=== PATIENT | male | born 1945 | race Hispanic/Latino ===

== ENCOUNTER 2017-12-29 11:24 | Emergency (ER) | payer MEDICARE ==
[2017-12-29 11:24] VITALS: BMI 36.0
[2017-12-29 12:02] VITALS: RESP 18; TEMP 98.2
[2017-12-29 13:25] LABS: BASO # 0.04 K/mm3 (0.0-2.0); BASO % 0.5 % (0.0-3.0); EOS # 0.1 (0.0-0.7); EOS % 1.6 % (1.5-5.0); GRAN # 5.11 (1.4-6.5); GRAN % 62.2 % (50.0-68.0); HEMOGLOBIN 14.7 g/dL (14.0-18.0); LYMPH % 23.7 % (22.0-35.0); MEAN CELL VOLUME 90.8 fl (80.0-105.0); MEAN CORPUSCULAR HEMOGLOBIN 31.4 pg (25.0-35.0); MEAN CORPUSCULAR HGB CONC 34.6 g/dl (31.0-37.0); MEAN PLATELET VOLUME 11.4 fl (7.0-11.0); RBC 4.68 10^6/uL (3.5-6.1); RED CELL DISTRIBUTION WIDTH 13.1 % (11.5-14.5); WHITE BLOOD COUNT 8.2 10^3/ul (4.5-11.0)
[2017-12-29 13:28] LABS: ALB/GLOB RATIO 1.5 (1.1-1.8); ALBUMIN 4.4 g/dL (3.0-4.8); ALT/SGPT 21 U/L (7-56); AST/SGOT 19 U/L (17-59); BLOOD UREA NITROGEN 14 mg/dL (7-21); CALCIUM 9.7 mg/dL (8.4-10.5); GFR NON-AFRICAN AMERICAN > 60; INR 1.03; PARTIAL THROMBOPLASTIN TIME 31.4 Seconds (25.1-36.5); PROTHROMBIN TIME 11.7 SECONDS (9.4-12.5)
[2017-12-29 13:39] LABS: B-TYPE NATRIURETIC PEPTIDE 511 pg/mL (0-450); TROPONIN I 0.02 ng/mL
--- NOTE | 2017-12-29 14:20 | ED PDOC ---
Arrival/HPI - General Historian: Patient - History of Present Illness Narrative History of Present Illness (Text): 12/29/17 14:12 72yo male with pmhx of hypertension, gout, CAD s/p cardiac stent, 1998 present via EMS for evaluation of elevated BP. Patient stats his BP is always elevated. States he went to [facility] for his handicap decal, and while there his BP was checked and it was 200/80 so he was referred to ED. States he has been on Benzapril and Carvidillol for years now. Report that he stopped taking Carvidilol 3weeks now, because he was having a reaction to it and his PMD at [facility] told him to stop it. States his Benzapril dose was not increased. 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 He however denies any chest pain, SOB, abdominal pain, nausea,vomiting, focal weakness, neurological weakness, any other complaint. <Hallie Oconnor A - Last Filed: 12/29/17 19:51> <Chris Sanchez - Last Filed: 12/30/17 07:28> - General Chief Complaint: High Blood Pressure Time Seen by Provider: 12/29/17 11:25 Past Medical History - Provider Review Nursing Documentation Reviewed: Yes - Infectious Disease Hx of Infectious Diseases: None - Tetanus Immunization Tetanus Immunization: Unknown - Cardiac Hx Cardiac Disorders: Yes Hx Circulatory Problems: Yes Hx Hypertension: Yes - Psychiatric Hx Anxiety: No Hx Depression: No Hx Panic Disorder: No Hx Substance Use: No - Surgical History Hx Cardiac Catheterization: Yes Hx Coronary Artery Bypass Graft: Yes Hx Coronary Stent: Yes - Anesthesia Hx Anesthesia Reactions: No - Suicidal Assessment Feels Threatened In Home Enviroment: No <Hallie Oconnor A - Last Filed: 12/29/17 19:51> Family/Social History - Physician Review Nursing Documentation Reviewed: Yes Family/Social History: Unknown Family HX Smoking Status: Unknown If Ever Smoked Hx Alcohol Use: No Hx Substance Use: No <ElvinHappiness A - Last Filed: 12/29/17 19:51> Allergies/Home Meds <ElvinHappiness A - Last Filed: 12/29/17 19:51> <Chris Sanchez - Last Filed: 12/30/17 07:28> Allergies/Adverse Reactions: Allergies Iodine and Iodide Containing Produc Allergy (Verified 12/29/17 12:02) RASH shellfish derived Allergy (Verified 12/29/17 12:02) RASH Home Medications: Home Meds Medication Instructions Recorded Confirmed Benazepril Hydrochloride 02/06/14 02/06/14 [Benazepril] Carvedilol 02/06/14 02/06/14 Clopidogrel [Plavix] 02/06/14 02/06/14 Isosorbide Mononitrate [Imdur] 02/06/14 02/06/14 Rosuvastatin Calcium [Crestor] 02/06/14 02/06/14 Review of Systems - Physician Review All systems were reviewed & negative as marked: Yes - Review of Systems Constitutional: Normal, Other (Elevated BP) Eyes: Normal ENT: Normal Respiratory: Normal Cardiovascular: Normal Gastrointestinal: Normal Genitourinary Male: Normal Musculoskeletal: Normal Skin: Normal Neurological: Normal Endocrine: Normal Hemo/Lymphatic: Normal Psychiatric: Normal <Diru,Happiness A - Last Filed: 12/29/17 19:51> Physical Exam Vital Signs Reviewed: Yes Vital Signs Temp Pulse Resp BP Pulse Ox 12/29/17 13:53 180 H 12/29/17 11:30 98.2 F 66 18 194/97 H 99 Temperature: Afebrile Blood Pressure: Normal Pulse: Regular Respiratory Rate: Normal Appearance: Positive for: Well-Appearing, Non-Toxic, Comfortable Pain Distress: None Mental Status: Positive for: Alert and Oriented X 3 - Systems Exam Head: Present: Atraumatic, Normocephalic Pupils: Present: PERRL Extroacular Muscles: Present: EOMI Conjunctiva: Present: Normal Mouth: Present: Moist Mucous Membranes Neck: Present: Normal Range of Motion Respiratory/Chest: Present: Clear to Auscultation, Good Air Exchange. No: Respiratory Distress, Accessory Muscle Use Cardiovascular: Present: Regular Rate and Rhythm, Normal S1, S2. No: Murmurs Abdomen: No: Tenderness, Distention, Peritoneal Signs Back: Present: Normal Inspection Upper Extremity: Present: Normal Inspection. No: Cyanosis, Edema Lower Extremity: Present: Normal Inspection. No: Edema Neurological: Present: GCS=15, CN II-XII Intact, Speech Normal Skin: Present: Warm, Dry, Normal Color. No: Rashes Psychiatric: Present: Alert, Oriented x 3, Normal Insight, Normal Concentration <Diru,Happiness A - Last Filed: 12/29/17 19:51> Vital Signs Temp Pulse Resp BP Pulse Ox 12/29/17 16:15 70 18 156/96 H 98 12/29/17 14:25 167/91 H 12/29/17 13:53 180/105 H 12/29/17 12:30 191/100 H 12/29/17 11:30 98.2 F 66 18 194/97 H 99 <LauraChris - Last Filed: 12/30/17 07:28> Medical Decision Making ED Course and Treatment: 12/29/17 19:37 PT in ED for stated history. He was not in any distress. He denies any focal somatic complaint. He is neurologically intact. Labs was ordered and reviewed, unremarkable. EKG NSR @ 63bpm. NSTEMI Pt's BP improved slightly with medication in ED. PT report history of chronic elevated BP. He has a PMD and a Cargo Agent. He was advised to f/u with his PMD for review of his medications. TRT ED for any new or worsening symptoms - Lab Interpretations Lab Results: 12/29/17 13:14 12/29/17 13:14 Lab Results 12/29/17 13:14: Sodium 141, Potassium 4.8, Chloride 106, Carbon Dioxide 28, Anion Gap 12, BUN 14, Creatinine 0.8, Est GFR ( Amer) > 60, Est GFR (Non- Af Amer) > 60, Random Glucose 105, Calcium 9.7, Magnesium 2.1, Total Bilirubin 0.4, AST 19, ALT 21, Alkaline Phosphatase 56, Lactate Dehydrogenase 465, Total Creatine Kinase 81, Troponin I 0.02, NT-Pro-B Natriuret Pep 511 H, Total Protein 7.4, Albumin 4.4, Globulin 3.0, Albumin/Globulin Ratio 1.5 12/29/17 13:14: PT 11.7, INR 1.03, APTT 31.4 12/29/17 13:14: WBC 8.2, RBC 4.68, Hgb 14.7, Hct 42.5, MCV 90.8, MCH 31.4, MCHC 34.6, RDW 13.1, Plt Count 158, MPV 11.4 H, Gran % 62.2, Lymph % (Auto) 23.7, Mccreary % (Auto) 12.0 H, Eos % (Auto) 1.6, Baso % (Auto) 0.5, Gran # 5.11, Lymph # (Auto) 2.0, Mccreary # (Auto) 1.0 H, Eos # (Auto) 0.1, Baso # (Auto) 0.04 - Medication Orders Current Medication Orders: Discontinued Medications Hydralazine HCl (Apresoline) 10 mg IVP ONCE ONE Stop: 12/29/17 13:41 Last Admin: 12/29/17 13:53 Dose: 10 mg IVP Administration Document 12/29/17 13:53 [facility] (Rec: 12/29/17 13:54 [id number] Charges for Administration # of IVP Administrations 1 JUN Pulse and Blood Pressure Document 12/29/17 13:53 [facility] (Rec: 12/29/17 13:54 [id number]) Pulse Pulse Rate (60-90 beats/min) 180 <Diru,Happiness A - Last Filed: 12/29/17 19:51> - Lab Interpretations Lab Results: 12/29/17 13:14 12/29/17 13:14 Lab Results 12/29/17 14:50: Urine Color Light yellow, Urine Appearance Clear, Urine pH 7.0, Ur Specific Milam <= 1.005, Urine Protein Negative, Urine Glucose (UA) Negative, Urine Ketones Negative, Urine Blood Negative, Urine Nitrate Negative, Urine Bilirubin Negative, Urine Urobilinogen 0.2, Ur Leukocyte Esterase Negative 12/29/17 13:14: Sodium 141, Potassium 4.8, Chloride 106, Carbon Dioxide 28, Anion Gap 12, BUN 14, Creatinine 0.8, Est GFR ( Amer) > 60, Est GFR (Non- Af Amer) > 60, Random Glucose 105, Calcium 9.7, Magnesium 2.1, Total Bilirubin 0.4, AST 19, ALT 21, Alkaline Phosphatase 56, Lactate Dehydrogenase 465, Total Creatine Kinase 81, Troponin I 0.02, NT-Pro-B Natriuret Pep 511 H, Total Protein 7.4, Albumin 4.4, Globulin 3.0, Albumin/Globulin Ratio 1.5 12/29/17 13:14: PT 11.7, INR 1.03, APTT 31.4 12/29/17 13:14: WBC 8.2, RBC 4.68, Hgb 14.7, Hct 42.5, MCV 90.8, MCH 31.4, MCHC 34.6, RDW 13.1, Plt Count 158, MPV 11.4 H, Gran % 62.2, Lymph % (Auto) 23.7, Mccreary % (Auto) 12.0 H, Eos % (Auto) 1.6, Baso % (Auto) 0.5, Gran # 5.11, Lymph # (Auto) 2.0, Mccreary # (Auto) 1.0 H, Eos # (Auto) 0.1, Baso # (Auto) 0.04 - Medication Orders Current Medication Orders: Discontinued Medications Hydralazine HCl (Apresoline) 10 mg IVP ONCE ONE Stop: 12/29/17 13:41 Last Admin: 12/29/17 13:53 Dose: 10 mg IVP Administration Document 12/29/17 13:53 [facility] (Rec: 12/29/17 13:54 [id number]) Charges for Administration # of IVP Administrations 1 JUN Pulse and Blood Pressure Document 12/29/17 13:53 [facility] (Rec: 12/29/17 13:54 [id number]) Blood Pressure Blood Pressure (100/60-150/90) 180/105 <Chris Sanchez - Last Filed: 12/30/17 07:28> - PA / [employer] / Resident Statement / has reviewed & agrees with the documentation as recorded. <Chris Sanchez - Last Filed: 12/30/17 07:28> Disposition/Present on Arrival - Present on Arrival Any Indicators Present on Arrival: No History of DVT/PE: No History of Uncontrolled Diabetes: No Urinary Catheter: No History of Decub. Ulcer: No History Surgical Site Infection Following: None - Disposition Have Diagnosis and Disposition been Completed?: Yes Disposition Time: 15:15 Patient Plan: Discharge <Hallie Oconnor - Last Filed: 12/29/17 19:51> <Chris Sanchez - Last Filed: 12/30/17 07:28> - Disposition Diagnosis: Hypertension Disposition: HOME/ ROUTINE Condition: STABLE Discharge Instructions (ExitCare): High Blood Pressure (DC) Additional Instructions: Follow up with your Doctor Return to ED for any new or worsening symptoms Referrals: Cadoo,Marichuy K A, MD [Primary Care Provider] - Follow up with primary Forms: [employer] (Macedonian)
[2017-12-29 15:12] LABS: URINE BILIRUBIN NEGATIVE (NEGATIVE); URINE BLOOD NEGATIVE (NEGATIVE); URINE GLUCOSE (UA) NEGATIVE (NEGATIVE); URINE LEUKOCYTE ESTERASE NEGATIVE Leu/uL (NEGATIVE); URINE PROTEIN NEGATIVE mg/dL (<30 mg/dL); URINE UROBILINOGEN 0.2 E.U./dL (<1 E.U./dL)
[2017-12-29 15:14] LABS: URINE APPEARANCE CLEAR (CLEAR); URINE COLOR LIGHT YELLOW (YELLOW)
[2017-12-29 16:33] VITALS: BP 156/96; PULSE 70; O2SAT 98
--- NOTE | 2017-12-30 09:47 | CARD ---
APPROVED REPORT Date of service: 12/29/2017 EKG Measurement Heart [id number]-10 [id number] <Conclusion> Normal sinus rhythm Inferior infarct, age undetermined NSSTW changes
== END 2017-12-30 01:11 | disposition home or self-care (01) ==
LOC: ED 11:24
DX: I10 Essential (primary) hypertension (principal); I25.10 Atherosclerotic heart disease of native coronary artery without angina pectoris; Z95.1 Presence of aortocoronary bypass graft; Z95.5 Presence of coronary angioplasty implant and graft
CPT/HCPCS: 80053; 81003; 82550; 83615; 83735; 83880; 84484; 85025; 85610; 85730; 93005; 96374; 99282; J0360

== ENCOUNTER 2018-01-01 23:09 | Emergency (ER) | payer MEDICARE ==
[2018-01-01 23:19] VITALS: BMI 32.6
[2018-01-02 00:19] VITALS: TEMP 98.2
--- NOTE | 2018-01-02 01:06 | ED PDOC ---
Arrival/HPI - General Chief Complaint: High Blood Pressure Time Seen by Provider: 01/01/18 23:56 Historian: Patient - History of Present Illness Narrative History of Present Illness (Text): 01/02/18 01:00 72 year old male, whose past medical history includes hypertension, gout, CAD s/p cardiac stent, 1998, presents to the emergency department via EMS complaining of elevated blood pressure. Patient states he was seen 4 days in the ER for elevated blood pressure of "200/80" and discharged when it was controlled. Patient followed up with Dr. Wall who prescribed Klonopin for anxiety. Patient checked his blood pressure again today and states it was "203/94". Patient denies any other complaints. Patient denies any fever, chills, chest pain, shortness of breath, nausea, vomiting, diarrhea, urinary symptoms, back pain, neck pain, headache, dizziness, or any other complaints. [facility] Time/Duration: Other (today) Symptom Onset: Sudden Symptom Course: Unchanged Activities at Onset: Light Context: Home Past Medical History - Provider Review Nursing Documentation Reviewed: Yes - Infectious Disease Hx of Infectious Diseases: None - Tetanus Immunization Tetanus Immunization: Unknown - Cardiac Hx Cardiac Disorders: Yes Hx Circulatory Problems: Yes Hx Hypertension: Yes - Psychiatric Hx Anxiety: No Hx Depression: No Hx Panic Disorder: No Hx Substance Use: No - Surgical History Hx Cardiac Catheterization: Yes Hx Coronary Artery Bypass Graft: Yes Hx Coronary Stent: Yes - Anesthesia Hx Anesthesia Reactions: No - Suicidal Assessment Feels Threatened In Home Enviroment: No Family/Social History - Physician Review Nursing Documentation Reviewed: Yes Family/Social History: No Known Family HX Smoking Status: Unknown If Ever Smoked Hx Alcohol Use: No Hx Substance Use: No Allergies/Home Meds Allergies/Adverse Reactions: Allergies Iodine and Iodide Containing Produc Allergy (Verified 01/01/18 23:19) RASH shellfish derived Allergy (Verified 01/01/18 23:19) RASH Home Medications: Home Meds Medication Instructions Recorded Confirmed Allopurinol [Zyloprim] 300 mg PO DAILY 01/02/18 01/02/18 Aspirin [Aspirin Chewable] 81 mg PO DAILY 01/02/18 01/02/18 Benazepril HCl [Lotensin] 60 mg PO DAILY 01/02/18 01/02/18 Carvedilol [Coreg] 12.5 mg PO DAILY 01/02/18 01/02/18 Clonazepam [Klonopin] 0.5 tab PO DAILY PRN 01/02/18 01/02/18 Clopidogrel [Plavix] 75 mg PO DAILY 01/02/18 01/02/18 Furosemide [Lasix] 20 mg PO DAILY 01/02/18 01/02/18 Isosorbide Mononitrate ER [Imdur 30 mg PO DAILY 01/02/18 01/02/18 ER] Ranitidine HCl 2 tab PO DAILY 01/02/18 01/02/18 Rosuvastatin Calcium [Crestor] 20 mg PO DAILY 01/02/18 01/02/18 Review of Systems - Physician Review All systems were reviewed & negative as marked: Yes - Review of Systems Constitutional: absent: Fevers, Other (Chills) Respiratory: absent: SOB Cardiovascular: absent: Chest Pain Gastrointestinal: absent: Diarrhea, Nausea, Vomiting Genitourinary Male: absent: Dysuria, Frequency, Hematuria Musculoskeletal: absent: Back Pain, Neck Pain Neurological: absent: Headache, Dizziness Physical Exam - Physical Exam Narrative Physical Exam (Text): Gen: VS reviewed, alert, Very Anxious, well developed, well nourished, nontoxic, mild distress. ENT: normal pharynx. Eye: EOMI, PERRL. Neck: no JVD, supple, no adenopathy. CV: regular rate, regular rhythm, no rubs, no murmur, no gallops, S1, S2, pulses equal and strong. Pulm: no distress, clear to auscultation, no wheeze, no rhonchi, breath sounds equal, no rales. Abd: soft, nontender, no guarding, no rebound, no rigidity, normal bowel sounds. Ext: no edema. Skin: good color, no rash, no cyanosis. Psych: Very Anxious, responds appropriately to questions, normal affect. Neuro: oriented x 3, CN2-12 intact grossly, motor intact, sensation intact. Vital Signs Reviewed: Yes Vital Signs Temp Pulse Resp BP Pulse Ox 01/02/18 00:51 65 14 168/87 H 98 01/01/18 23:30 98.2 F 68 16 196/89 H 96 Temperature: Afebrile Blood Pressure: Hypertensive Pulse: Regular Respiratory Rate: Normal Medical Decision Making ED Course and Treatment: 01/02/18 01:00 Impression: 72 year old male presents complaining of elevated blood pressure. Plan: -- Reassess and disposition Prior Visits: Notes and results from previous visits were reviewed. Patient was last seen in the emergency department on 12/19/17 presents complaining of elevated blood pressure. Patient was discharged home. Progress Notes: - Scribe Statement The provider has reviewed the documentation as recorded by the Glynn Clemens Provider Scribe Attestation: All medical record entries made by the Scribe were at my direction and personally dictated by me. I have reviewed the chart and agree that the record accurately reflects my personal performance of the history, physical exam, medical decision making, and the department course for this patient. I have also personally directed, reviewed, and agree with the discharge instructions and disposition. Disposition/Present on Arrival - Present on Arrival History of DVT/PE: No History of Uncontrolled Diabetes: No Urinary Catheter: No History of Decub. Ulcer: No History Surgical Site Infection Following: None - Disposition Diagnosis: Hypertension, Anxiety Disposition: HOME/ ROUTINE Condition: STABLE Discharge Instructions (ExitCare): High Blood Pressure in Adults, Anxiety, Adult (DC) Additional Instructions: You must follow up with your primary care doctor as soon as possible. SHERRY BRIZUELA, thank you for letting us take care of you today. Your provider was Dr. Justin Cisneros and you were treated for ANXIETY. The emergency medical care you received today was directed at your acute symptoms. If you were prescribed any medication, please fill it and take as directed. It may take several days for your symptoms to resolve. Return to the Emergency Department if your symptoms worsen, do not improve, or if you have any other problems. Please contact your doctor or call one of the physicians/clinics you have been referred to that are listed on the Patient Visit Information form that is included in your discharge packet. Bring any paperwork you were given at [facility] with you along with any medications you are taking to your follow up visit. Our treatment cannot replace ongoing medical care by a primary care provider outside of the emergency department. Thank you for allowing the [facility] [employer] team to be part of your care today. If you had an X-Ray or CT scan: A Radiologist will review the ED reading if any change in treatment is needed we will contact you. If you had a blood, urine, or wound culture: It will take several days for the results, if any change in treatment is needed we will contact you. If you had an STI test: It will take 48 hours for the results. Please call after 1 week if you have not heard back. Forms: [employer] (Irish)
[2018-01-02 02:03] VITALS: BP 164/82; PULSE 80; RESP 20; O2SAT 99
--- NOTE | 2018-01-02 11:12 | CARD ---
APPROVED REPORT Date of service: 01/02/2018 EKG Measurement Heart [id number] <Conclusion> Normal sinus rhythm consider Inferior infarct, age undetermined poor R wave progression borderline IVCD Abnormal ECG
== END 2018-01-02 01:56 | disposition home or self-care (01) ==
LOC: ED 23:09
DX: I10 Essential (primary) hypertension (principal); F41.9 Anxiety disorder, unspecified